=== PATIENT | female | born 1990 | race Caucasian/White ===

== ENCOUNTER → 2019-08-30 | Emergency (ER) | payer MEDICAID ==
[~2019-08-30] VITALS: Ht 162.6 cm; Wt 43.2 kg
[2019-08-30 19:23] VITALS: Ht 162.6 cm; Wt 43.2 kg
[2019-08-30 20:00] LABS: CALC OSMOLALITY 281 mosm/kg (275-300); CALCIUM 9.3 mg/dL (8.5-10.1); CARBON DIOXIDE 25.1 mmol/L (21.0-32.0); CHLORIDE - SERUM 102 mmol/L (98-107); CREATININE - SERUM 0.9 mg/dL (0.6-1.3); GLUCOSE 107 mg/dL (74-106); POTASSIUM - SERUM 3.4 mmol/L (3.5-5.1); SODIUM 140 mmol/L (136-145); UREA NITROGEN 21 mg/dL (7-18); eGFR NON AFRICAN AMERICAN 80 mL/min (90-120)
[2019-08-30 20:08] LABS: HEMATOCRIT 45.5 % (36.0-48.0); HEMOGLOBIN 15.6 g/dL (12-16); MCH 30.2 pg (26.0-34.0); MCHC 34.3 g/dL (31.0-37.0); MCV 88.2 fL (80.0-100.0); RBC 5.16 10x6/uL (4.00-5.40); WBC 6.8 10x3/uL (4.8-10.8)
[2019-08-30 20:09] LABS: BASOPHILS 0.3 % (0-2); EOSINOPHILS 0.1 % (0-7); LYMPHOCYTES 14.6 % (15-50); MEAN PLATELET VOLUME 9.8 fL (7.4-10.4); MONOCYTES 3.1 % (2-11); NEUTROPHILS 81.8 % (40-80); PLATELET COUNT 229 10x3/uL (130-400); RDW 12.3 % (11.5-14.5)
[2019-08-30 20:10] LABS: IMMATURE GRANULOCYTES 0.1 % (0-5)
[2019-08-30 20:14] LABS: APTT 26.4 SECONDS (22.8-39.4); INR 1.04 (0.85-1.17); PROTIME 13.1 SECONDS (11.6-15.0)
[2019-08-30 20:15] LABS: ALBUMIN 4.7 g/dL (3.4-5.0); ALKALINE PHOSPHATASE 92 U/L (30-120); ALT (SGPT) 100 U/L (10-68); BILIRUBIN - TOTAL 1.57 mg/dL (0.2-1.3); CKMB 0.3 U/L (0.0-3.6); CREATINE KINASE 47 UL (21-215); MAGNESIUM - SERUM 2.3 mg/dL (1.8-2.4); PROTEIN - SERUM 8.1 g/dL (6.4-8.2)
[2019-08-30 20:16] LABS: TROPONIN-I < 0.017 ng/mL (0.000-0.060)
[2019-08-30 21:45] LABS: BILIRUBIN NEGATIVE (NEGATIVE); GLUCOSE NEGATIVE (NEGATIVE); KETONE SMALL mg/dL (NEGATIVE); NITRITE NEGATIVE (NEGATIVE); SPECIFIC GRAVITY 1.025 (1.005-1.020); UROBILINOGEN NORMAL (NORMAL)
[2019-08-30 21:56] LABS: UDS - AMPHET POSITIVE QUAL (NEGATIVE); UDS - BARB NEGATIVE QUAL (NEGATIVE); UDS - BENZO POSITIVE QUAL (NEGATIVE); UDS - COCAINE POSITIVE QUAL (NEGATIVE); UDS - OPIATE NEGATIVE QUAL (NEGATIVE); UDS - PCP NEGATIVE QUAL (NEGATIVE); UDS - THC POSITIVE QUAL (NEGATIVE)
[2019-08-31 00:04] VITALS: BP 122/67
== END | disposition home or self-care (01) ==
LOC: D.ER 19:07
PROVIDERS: Family Medicine
DX: F41.9 Anxiety disorder, unspecified (principal); F14.10 Cocaine abuse, uncomplicated; F15.10 Other stimulant abuse, uncomplicated; F13.20 Sedative, hypnotic or anxiolytic dependence, uncomplicated; R07.9 Chest pain, unspecified

== ENCOUNTER 2019-09-12 09:44 | Emergency (ER) | payer MEDICAID ==
[~2019-09-12] VITALS: Ht 162.6 cm; Wt 43.2 kg
[2019-09-12 10:05] VITALS: Ht 162.6 cm; Wt 43.2 kg
[2019-09-12] MEDS ORDERED: KLONOPIN0.5 MG PO (10:08)
[2019-09-12] MEDS ORDERED: TRINTELLIX5 MG PO (10:09)
[2019-09-12 10:38] LABS: BASOPHILS 0.1 % (0-2); EOSINOPHILS 0 % (0-7); HEMATOCRIT 46.3 % (36.0-48.0); HEMOGLOBIN 15.6 g/dL (12-16); IMMATURE GRANULOCYTES 0.2 % (0-5); LYMPHOCYTES 15.2 % (15-50); MCH 30.3 pg (26.0-34.0); MCHC 33.7 g/dL (31.0-37.0); MCV 89.9 fL (80.0-100.0); MEAN PLATELET VOLUME 9.6 fL (7.4-10.4); MONOCYTES 8.1 % (2-11); NEUTROPHILS 76.4 % (40-80); RBC 5.15 10x6/uL (4.00-5.40); RDW 12.9 % (11.5-14.5); WBC 10.5 10x3/uL (4.8-10.8)
[2019-09-12 10:47] LABS: CALC OSMOLALITY 281 mosm/kg (275-300); CALCIUM 9.7 mg/dL (8.5-10.1); CARBON DIOXIDE 24.6 mmol/L (21.0-32.0); CHLORIDE - SERUM 102 mmol/L (98-107); GLUCOSE 121 mg/dL (74-106); POTASSIUM - SERUM 3.5 mmol/L (3.5-5.1); SODIUM 140 mmol/L (136-145); UREA NITROGEN 18 mg/dL (7-18); eGFR NON AFRICAN AMERICAN 70 mL/min (90-120)
[2019-09-12 10:55] LABS: ALBUMIN 4.8 g/dL (3.4-5.0); ALKALINE PHOSPHATASE 88 U/L (30-120); ALT (SGPT) 32 U/L (10-68); AMYLASE - SERUM 58 U/L (25-115); BILIRUBIN - TOTAL 1.84 mg/dL (0.2-1.3); LIPASE 106 U/L (73-393); PROTEIN - SERUM 8.4 g/dL (6.4-8.2)
[2019-09-12 10:56] LABS: TROPONIN-I < 0.017 ng/mL (0.000-0.060)
[2019-09-12 11:05] LABS: PLATELET COUNT 286 10x3/uL (130-400)
[2019-09-12 11:50] LABS: HCG URINE NEGATIVE (NEGATIVE)
[2019-09-12 12:37] LABS: BILIRUBIN NEGATIVE (NEGATIVE); GLUCOSE NEGATIVE (NEGATIVE); KETONE SMALL mg/dL (NEGATIVE); NITRITE NEGATIVE (NEGATIVE); SPECIFIC GRAVITY 1.005 (1.005-1.020); UROBILINOGEN NORMAL (NORMAL)
[2019-09-12] MEDS ORDERED: CARAFATE1 G PO (13:06)
[2019-09-12] MEDS ORDERED: BENTYL 20 MG TA20 MG PO (13:06)
[2019-09-12] MEDS ORDERED: ZOFRAN ODT4 MG/UDTAB PO (13:06)
[2019-09-12 13:20] VITALS: BP 112/68
== END 2019-09-12 13:21 | disposition home or self-care (01) ==
LOC: D.ER 09:44
PROVIDERS: Family Medicine
DX: A08.4 Viral intestinal infection, unspecified (principal); K29.70 Gastritis, unspecified, without bleeding; R11.2 Nausea with vomiting, unspecified; R10.9 Unspecified abdominal pain

== ENCOUNTER 2020-06-28 11:27 | Observation (INO) | payer SELFPAY ==
[~2020-06-28] VITALS: Ht 162.6 cm; Wt 52.3 kg
[~2020-06-28 11:27] MED LIST: BENTYL 20 MG TA20 MG PO; CARAFATE1 G PO; KLONOPIN0.5 MG PO; TRINTELLIX5 MG PO; ZOFRAN ODT4 MG/UDTAB PO
[2020-06-28 11:30] VITALS: Ht 162.6 cm; Wt 52.3 kg
[2020-06-28 11:59] LABS: BASOPHILS 0.1 % (0-2); EOSINOPHILS 0.1 % (0-7); HEMATOCRIT 38.2 % (36.0-48.0); HEMOGLOBIN 12.9 g/dL (12-16); IMMATURE GRANULOCYTES 0.1 % (0-5); LYMPHOCYTE ABS# 1.03 10x3/uL (1.18-3.74); LYMPHOCYTES 12.2 % (15-50); MCH 30.6 pg (26.0-34.0); MCHC 33.8 g/dL (31.0-37.0); MCV 90.7 fL (80.0-100.0); MEAN PLATELET VOLUME 9.5 fL (7.4-10.4); MONOCYTES 5.9 % (2-11); NEUTROPHILS 81.6 % (40-80); RBC 4.21 10x6/uL (4.00-5.40); RDW 12.4 % (11.5-14.5); WBC 8.5 10x3/uL (4.8-10.8)
[2020-06-28 12:08] LABS: PLATELET COUNT 180 10x3/uL (130-400)
[2020-06-28 12:18] LABS: UDS - AMPHET POSITIVE QUAL (NEGATIVE); UDS - BARB NEGATIVE QUAL (NEGATIVE); UDS - BENZO POSITIVE QUAL (NEGATIVE); UDS - COCAINE NEGATIVE QUAL (NEGATIVE); UDS - OPIATE NEGATIVE QUAL (NEGATIVE); UDS - PCP NEGATIVE QUAL (NEGATIVE); UDS - THC POSITIVE QUAL (NEGATIVE)
[2020-06-28 12:19] LABS: ANION GAP 13.5 mmol/L (8-16); CALCIUM 8.6 mg/dL (8.5-10.1); CARBON DIOXIDE 26.1 mmol/L (21.0-32.0); CREATININE - SERUM 1.1 mg/dL (0.6-1.3); POTASSIUM - SERUM 3.6 mmol/L (3.5-5.1)
[2020-06-28 12:24] LABS: BILIRUBIN NEGATIVE (NEGATIVE); KETONE NEGATIVE (NEGATIVE); NITRITE NEGATIVE (NEGATIVE); UROBILINOGEN NORMAL mg/dL (< 2); WHITE CELLS - URINE RARE HPF (0-4)
[2020-06-28 12:24] LABS: ALBUMIN 3.8 g/dL (3.4-5.0); BILIRUBIN - TOTAL 1.17 mg/dL (0.2-1.3); MAGNESIUM - SERUM 2.2 mg/dL (1.8-2.4); PROTEIN - SERUM 6.4 g/dL (6.4-8.2)
[2020-06-28 12:25] LABS: BACTERIA MODERATE HPF (NONE SEEN); SQUAMOUS EPITHELIAL 0-5 HPF (0-4)
[2020-06-28 12:28] LABS: HCG URINE NEGATIVE (NEGATIVE)
--- NOTE | 2020-06-28 13:45 | NUR ---
DR. PATEL NOTIFIED AND SITTER ORDERED. SITTER AT BEDSIDE. NOTIFIED CHARGE NURSE AND ATTENDING IN REGARDS TO ASSESSMENT FINDINGS. RESOURCES GIVEN TO PT AND PT REFUSED SAFETY PLAN AT THIS TIME. PT REPORTS " I AM NOT SUICIDAL, I WAS JUST TRYING TO GET HIGH." PT REPORTS " MY KIDS FATHER WAS WITH ME AND HE IS AT A DIFFERENT HOSPITAL, WE WAS JUST TRYING TO GET HIGH, NOT COMMIT SUICIDE."
--- NOTE | 2020-06-28 13:45 | NUR ---
BEHAVIORAL SCREENING IN PROGRESS.
[2020-06-28 19:15] VITALS: BP 92/57
--- NOTE | 2020-06-28 19:39 | NUR ---
PT AAOX4 REQUESTING SOMETHING TO EAT. PT GIVEN SANDWICH TRAY AND APPLE JUICE. DENIES FURTHER NEEDS. CALL LIGHT IN REACH.
--- NOTE | 2020-06-28 20:23 | NUR ---
PT AMBULATED UP TO BEDSIDE COMMODE.
[2020-06-28 20:33] VITALS: BP 93/61
[2020-06-28 21:15] VITALS: BP 94/57
--- NOTE | 2020-06-28 21:32 | NUR ---
ANSWERED PT CALL LIGHT. PT REQUESTING ICE CHIPS. PT DENIES FURTHER NEEDS. CALL LIGHT IN REACH.
[2020-06-28 22:00] VITALS: BP 97/51
--- NOTE | 2020-06-28 23:21 | NUR ---
PT CULLED FRUIT PACKER LIGHT REQUESTING A SNACK. PT GIVEN PB CRACKERS AND JUICE. DENIES FURTHER NEEDS. CALL LIGHT IN REACH.
[2020-06-29] VITALS (8 sets, daily range): BP systolic 87–108; BP diastolic 52–69
[2020-06-29 06:42] LABS: BASOPHILS 0.6 % (0-2); EOSINOPHILS 2.9 % (0-7); HEMATOCRIT 34.4 % (36.0-48.0); IMMATURE GRANULOCYTES 0.3 % (0-5); LYMPHOCYTE ABS# 1.58 10x3/uL (1.18-3.74); LYMPHOCYTES 45.1 % (15-50); MCH 29.6 pg (26.0-34.0); MCV 92.5 fL (80.0-100.0); MONOCYTES 10.9 % (2-11); NEUTROPHIL ABS# 1.41 10x3/uL (1.56-6.13); NEUTROPHILS 40.2 % (40-80); PLATELET COUNT 167 10x3/uL (130-400); RBC 3.72 10x6/uL (4.00-5.40); RDW 12.6 % (11.5-14.5); WBC 3.5 10x3/uL (4.8-10.8)
[2020-06-29 06:46] LABS: ALBUMIN 2.9 g/dL (3.4-5.0); ALKALINE PHOSPHATASE 70 U/L (30-120); ALT (SGPT) 65 U/L (10-68); BILIRUBIN - TOTAL 0.93 mg/dL (0.2-1.3); CALCIUM 7.4 mg/dL (8.5-10.1); CARBON DIOXIDE 23.8 mmol/L (21.0-32.0); CHLORIDE - SERUM 109 mmol/L (98-107); MAGNESIUM - SERUM 1.9 mg/dL (1.8-2.4); PHOSPHOROUS 2.8 mg/dL (2.5-4.9); POTASSIUM - SERUM 4.1 mmol/L (3.5-5.1); PROTEIN - SERUM 5.2 g/dL (6.4-8.2); SODIUM 137 mmol/L (136-145); UREA NITROGEN 13 mg/dL (7-18)
[2020-06-29 06:50] LABS: CALC OSMOLALITY 273 mosm/kg (275-300); CREATININE - SERUM 0.6 mg/dL (0.6-1.3); GLUCOSE 97 mg/dL (74-106); eGFR NON AFRICAN AMERICAN > 90 mL/min (90-120)
--- NOTE | 2020-06-29 08:30 | NUR ---
PT WANTING TO LEAVE AMA. EXPLAINED TO PT RISK OF LEAVING AMA AND ASKED IF SHE COULD WAIT UNTIL DR TYSON. PT STATES SHE HAS THINGS TO DO AND NEEDS TO LEAVE NOW. CONTACTED RESIDENTIAL LEASING AGENT FOR DR. JEFFERSON. NOTIFIED DEYANIRA OCONNELL APN AT [id number], STATES THAT PT WAS PROBABLY GOING TO BE DISCHARGED THIS AM.
--- NOTE | 2020-06-29 11:59 | CN ---
PATIENT NAME:FRANSISCO HANCOCK MEDICAL RECORD: [id number] : 92 LOCATION:[facility]- ADMIT DATE: 06/28/20 ACCOUNT: [id number] CONSULTING PHYSICIAN: JACK PATEL MD REFERRING PHYSICIAN: GINGER JEFFERSON MD DATE OF CONSULTATION: 06/28/2020 IDENTIFYING DATA: The patient is 30 years old and she is admitted to the hospital voluntarily. CHIEF COMPLAINT: Opiate overdose. HISTORY OF PRESENT ILLNESS: The patient tells me she was not trying to kill herself. 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 In fact, she has been in multiple treatment programs as an inpatient and outpatient for opiate addiction. She has been in a Suboxone program and she recently was discharged from a residential program in [place] and almost immediately relapsed. She does combine various illicit substances, but her core addiction is to opiates. She has insight about the power that this addiction has over her and her inability to control it. She does have a number of depressive symptoms, but in no way was this an intentional overdose for the purposes of killing herself and she talks to me about her children and wanting to be able to see them, but not being able to do so because of her addiction. She is wanting treatment, but she does not want an inpatient program. She tells me she has taken Suboxone in the past and that it did not agree with her. I have given her information for both Suboxone program in case she changes her mind and a methadone program. Unfortunately, [place] methadone program is 45 minutes from here and I am not sure that is going to meet her needs. ASSESSMENT: Opiate addiction. PLAN: The patient is not suicidal. She does not need to be confined to an inpatient psychiatric facility. She does not need a sitter. Her depressive symptoms would dramatically improve if she had a good handle on her addiction. I do believe that she needs inpatient substance abuse treatment, but she is declining this. Hopefully, she will take advantage of one of the medication-assisted programs that I gave her information on. I must say that her prognosis is exceedingly poor if she does not get a handle on her opiate addiction and her long-term wellbeing will be almost entirely contingent upon how her substance abuse problem is addressed. TRANSINT:[id number] Voice Confirmation ID: [id number] DOCUMENT ID: [id number] JACK PATEL MD at 1159 CC: [id number] DICTATION DATE: 06/28/20 1636 HAND BRUSH FILLER: 06/28/20 2307 ADM IN [place] [id number] [place] [id number]
== END 2020-06-29 08:38 | disposition left against medical advice (07) ==
LOC: D.ER 11:27 → OBSVTIME 11:43 → D.EDHOLD 11:43
PROVIDERS: Family Medicine; ADMIT Emergency Medicine; ATTEND Emergency Medicine
DX: T40.411A Poisoning by fentanyl or fentanyl analogs, accidental (unintentional), initial encounter (principal); R41.82 Altered mental status, unspecified; T40.1X1A Poisoning by heroin, accidental (unintentional), initial encounter; F17.203 Nicotine dependence unspecified, with withdrawal